=== PATIENT | male | born 1995 | race Caucasian/White ===

== ENCOUNTER 2017-04-29 19:36 | Emergency (ER) | payer OTHER ==
[2017-04-29 20:45] VITALS: BP 139/80
[2017-04-29] MEDS ORDERED: Acetaminophen/oxyCODONE 325-5 MG Tab PO ONE (21:06)
--- NOTE | 2017-04-29 21:41 | EDM.PDOC ---
ED HPI GENERAL MEDICAL PROBLEM - General Chief Complaint: Skin Complaint Stated Complaint: BURNED FINGER AT WORK Time Seen by Provider: 04/29/17 21:35 Source of Information: Reports: Patient History Limitations: Reports: No Limitations - History of Present Illness INITIAL COMMENTS - FREE TEXT/NARRATIVE: pt ended up putting the palm of his left hand on the grill at [facility]. This was very brief. He has some 1st and second degree vaca at the tips of the fingers. The deepest is the middle finger of the left hand. . He has a small blister at the base of the small finger. Onset: Today Duration: Hour(s): Location: Reports: Upper Extremity, Left Associated Symptoms: Reports: No Other Symptoms - Related Data Allergies Allergy/AdvReac Type Severity Reaction Status Date / Time No Known Allergies Allergy Verified 04/29/17 20:50 Home Meds: Home Meds Albuterol Sulfate [Proair Hfa] 1 puff INH ASDIRECTED PRN 02/11/14 [History] Ibuprofen 800 mg PO ASDIRECTED PRN 03/07/15 [History] Past Medical History HEENT History: Reports: Impaired Vision Respiratory History: Reports: Asthma Other Respiratory History: mono Gastrointestinal History: Reports: Chronic Constipation Musculoskeletal History: Reports: Fracture Neurological History: Reports: Migraines Psychiatric History: Reports: Anxiety, Depression, Suicide Attempt Hematologic History: Reports: Blood Transfusion(s) Other Dermatologic History: dry skin - Infectious Disease History Infectious Disease History: Reports: Chicken Pox - Past Surgical History HEENT Surgical History: Reports: Myringotomy w Tube(s) Neurological Surgical History: Reports: Intracranial Social & Family History - Tobacco Use Smoking Status *Q: Never Smoker Second Hand Smoke Exposure: No - Alcohol Use Days Per Week of Alcohol Use: 0 - Recreational Drug Use Recreational Drug Use: No ED ROS GENERAL - Review of Systems Review Of Systems: See Below Constitutional: Reports: No Symptoms HEENT: Reports: No Symptoms Respiratory: Reports: No Symptoms Cardiovascular: Reports: No Symptoms Endocrine: Reports: No Symptoms GI/Abdominal: Reports: No Symptoms : Reports: No Symptoms Musculoskeletal: Reports: Other ( burn on the palm of the left hand. ) ED EXAM, SKIN/RASH Exam: See Below Text/Narrative:: Pt burnt his hand omn the lane aspect of the left hand. Exam Limited By: No Limitations General Appearance: Alert, Anxious, Mild Distress Extremities: Other ( Pt has 1st and second degree vaca on the lane aspect -- tips of the fingers. The deepest is the middle finger. There is a small blister at the base of the small finger. ) Course - Vital Signs Last Recorded V/S: Last Vital Signs Temp 36.1 C 04/29/17 21:19 Pulse 66 04/29/17 21:19 Resp 16 04/29/17 21:19 BP 139/80 04/29/17 21:19 Pulse Ox 99 04/29/17 21:19 - Orders/Labs/Meds Orders: Active Orders 24 hr Category Date Time Status Bacitracin [Bacitracin Oint 1 GM] Med 04/29/17 21:42 Once 2 dose TOP ONETIME ONE Meds: Medications Discontinued Medications Generic Name Dose Route Start Last Admin Trade Name Freq PRN Reason Stop Dose Admin Oxycodone/Acetaminophen 1 tab 04/29/17 21:06 04/29/17 21:15 Percocet 325-5 Mg PO 04/29/17 21:07 1 tab ONETIME ONE Administration Departure - Departure Time of Disposition: 21:41 Disposition: Home, Self-Care 01 Condition: Fair Clinical Impression: First degree burn of two or more digits of left hand - Discharge Information Referrals: PCP,None [Primary Care Provider] - Forms: ED Department Discharge Care Plan Goals: clean and .soak in cool water daily dress fingers with bacatracin norco 5/325 q6h prn for pain # 6 - My Orders Last 24 Hours: My Active Orders 04/29/17 21:42 Bacitracin [Bacitracin Oint 1 GM] 2 dose TOP ONETIME ONE - Assessment/Plan Last 24 Hours: My Active Orders 04/29/17 21:42 Bacitracin [Bacitracin Oint 1 GM] 2 dose TOP ONETIME ONE
[2017-04-29] MEDS ORDERED: Bacitracin Oint 1 GM U/D Packet TOP ONE (21:42)
== END 2017-04-29 21:57 | disposition home or self-care (01) ==
LOC: JP.ED 19:36
DX: T23.222A Burn of second degree of single left finger (nail) except thumb, initial encounter (principal); J45.909 Unspecified asthma, uncomplicated; W29.2XXA Contact with other powered household machinery, initial encounter
CPT/HCPCS: 99283; A9270

== ENCOUNTER 2022-06-12 10:13 | Emergency (ER) | payer MEDICAID ==
[2022-06-12] MEDS ORDERED: Ketorolac 15 MG/ML SDV IM ONE (10:51)
[2022-06-12] MEDS ORDERED: Sodium Chloride 0.9% 10 ML Syringe FLUSH PRN (12:18)
[2022-06-12 12:29] VITALS: BP 138/92; PULSE 73
[2022-06-12] MEDS ORDERED: Gadoteridol 279.3 MG/ML 20 ML SDV IV SCH (13:15)
== END 2022-06-12 14:55 | disposition home or self-care (01) ==
LOC: JP.ED 10:13
DX: G44.319 Acute post-traumatic headache, not intractable (principal); M54.2 Cervicalgia; R20.0 Anesthesia of skin; J45.909 Unspecified asthma, uncomplicated; W10.8XXA Fall (on) (from) other stairs and steps, initial encounter
CPT/HCPCS: 70450; 70553; 72125; 72141; 76377; 96372; 99283; A9579; J1885; J3490

== ENCOUNTER 2023-02-08 16:41 | Emergency (ER) | payer MEDICAID | END 2023-02-08 18:30 | disposition left against medical advice (07) | LOC: JP.ED 16:41 | DX: Z53.21 Procedure and treatment not carried out due to patient leaving prior to being seen by health care provider (principal) ==

== ENCOUNTER 2023-12-27 20:04 | Emergency (ER) | payer OTHER, MEDICAID ==
[2023-12-27 20:33] VITALS: PULSE 91
[2023-12-27] MEDS: Bacitracin Oint 1 GM U/D Packet TOP ONE (20:43)
[2023-12-27] MEDS: Lidocaine 1% 5 ML VIAL INJECT ONE (20:44)
[2023-12-27 21:10] VITALS: BP 130/94
== END 2023-12-27 21:25 | disposition home or self-care (01) ==
LOC: JP.ED 20:04
DX: S61.011A Laceration without foreign body of right thumb without damage to nail, initial encounter (principal); Z86.16 Personal history of COVID-19; W26.8XXA Contact with other sharp object(s), not elsewhere classified, initial encounter
CPT/HCPCS: 12002; 99282